=== PATIENT | male | born 1955 | race Caucasian/White ===

== ENCOUNTER 2017-07-10 06:03 | Day surgery (SDC) | payer OTHER ==
[2017-07-10] VITALS (9 sets, daily range): BP systolic 111–162; BP diastolic 66–91; PULSE 60–80; RESP 16–20; TEMP 97.7–98.8; O2SAT 95–99
[~2017-07-10] VITALS: Ht 172.7 cm; Wt 91.0 kg
[~2017-07-10 06:03] MED LIST: LEVA500T PO
[2017-07-10] MEDS ORDERED: CHLORHEXIDINE GLUCONATE 2 % 1 PACK (2 CLOTHS) TOPICAL PRN (06:45)
[2017-07-10] MEDS ORDERED: MUPIROCIN 2% OINT 1 APPLIC/GM SYR NASAL SCH (06:45)
[2017-07-10] MEDS ORDERED: LORazepam 1 MG TAB SL SCH (06:45)
[2017-07-10] MEDS ORDERED: POVIDONE IODINE 5% (ANTISEPSIS KIT) 4 APPLICATIONS EACH NARE PRN (06:45)
[2017-07-10] MEDS ORDERED: METOPROLOL TARTRATE 25 MG TAB PO PRN (06:45)
[2017-07-10] MEDS ORDERED: POVIDONE IODINE 5% (ANTISEPSIS KIT) 4 APPLICATIONS EACH NARE SCH (06:45)
[2017-07-10] MEDS ORDERED: NS 1000 ML IV SCH (06:45)
[2017-07-10] MEDS ORDERED: VANCOMYCIN 1000 MG/NS 250 ML IV SCH ×2 (06:45)
[2017-07-10] MEDS ORDERED: CHLORHEXIDINE GLUCONATE 2 % 1 PACK (2 CLOTHS) TOPICAL SCH (06:45)
[2017-07-10] MEDS ORDERED: LACTATED RINGER'S 1000 ML IV PRN (06:45)
[2017-07-10] MEDS ORDERED: ceFAZolin 2 GM PREMIX 50 ML IV SCH (06:45)
[2017-07-10] MEDS ORDERED: SODIUM CHLORID 0.9% 500 ML IV PRN (06:45)
[2017-07-10 07:04] LABS: AUTOMATED NEUTROPHIL # 4.8 TH/MM3 (1.8-7.7); BASOPHIL % 0.6 % (0.0-2.0); EOSINOPHIL # 0.3 TH/MM3 (0-0.4); EOSINOPHIL % 3.6 % (0.0-4.0); HEMATOCRIT 44.6 % (39.0-51.0); HEMO FLAGS DIFF FINAL; LYMPH % 33.1 % (9.0-44.0); MEAN CELL VOLUME 95.3 FL (80.0-100.0); MEAN CORPUSCULAR HGB CONC 34.6 % (32.0-36.0); MONO % 9.5 % (0.0-8.0); NEUT % 53.2 % (16.0-70.0); PLATELET COUNT 199 TH/MM3 (150-450); RED BLOOD COUNT 4.68 MIL/MM3 (4.50-5.90); RED CELL DISTRIBUTION WIDTH 12.8 % (11.6-17.2)
[2017-07-10 07:12] LABS: APTT (PATIENT) 27.8 SEC (24.3-30.1); INTERNATIONAL NORMALIZED RATIO 1.1 RATIO; PROTHROMBIN TIME - PATIENT 11.3 SEC (9.8-11.6)
[2017-07-10 07:19] LABS: BICARBONATE 28.1 MEQ/L (21.0-32.0); POTASSIUM 3.9 MEQ/L (3.5-5.1)
[2017-07-10] MEDS ORDERED: FURO40TA PO (07:43)
[2017-07-10] MEDS ORDERED: APIX5TAB PO (07:43)
[2017-07-10] MEDS ORDERED: LISI10TA3 PO (07:43)
[2017-07-10] MEDS ORDERED: AMIO200T PO (07:43)
[2017-07-10] MEDS ORDERED: CARV6.252 PO (07:43)
[2017-07-10] MEDS ORDERED: MIDAZOLAM HCL 2 MG/2 ML VIAL ONE (15:22)
[2017-07-10] MEDS ORDERED: PROPOFOL 200 MG/20 ML AMP ONE (15:22)
[2017-07-10] MEDS ORDERED: LIDOCAINE HCL 2% 50 ML VIAL ONE (15:25)
[2017-07-10] MEDS ORDERED: VANCOMYCIN 500 MG VIAL ONE (15:26)
--- NOTE | 2017-07-10 16:24 | CATHPROC ---
Oneto[employer] HIS Report Study Information Study Number Admission Scheduled Start Study Start [id number] Jul 10 2017 6:03AM 07/10/2017 Jul 10 2017 3:27PM [facility] Service Cardiac Pacer/ICD Admit Source Facility Department Other [facility] Physician and Clinical Staff Initial Josh Sotelo Balance Truer Tamika Ha,UNEMPLOYMENT INSURANCE DIRECTOR TECH2 Other Anesthesia, DYNAMIC ETCHING PROCESSOR Recorder Kierra Caballero,RN Scrub Gracie Sarmiento,RT(R) TECH2 Procedures Performed Procedure Lead Insertion Equipment Time Raschel Knitting Machine Operator Description Size Mfg Part Number Used/Scraped DEFIBRILLATOR, INTICA 7 VR-T 16:05 BIOTRONIK VVE-VDDR [id number] Used DX 16:03 BIOTRONIK LEAD, PLEXA PRO-MRI DF 65/15 [id number] Used DERMABOND, ADHESIVE SKIN [id number] 15:30 CORDIS/PACER * Used GLUE MINI *[id number] TP-1103 15:30 MEDLINE IND[employer]ES SUTURE, STRIP PLUS 1/2" * Used *[id number] 15:30 MEDLINE PACER SELBY, LIMB * 2530 *[id number] Used [id number] 15:30 Drinks4-you PACER PACK, PACER CUSTOM * Used *[id number] 15:59 Franchisee Gladiator PACER SAFE SHEATH, FR8, 13CM FR 8 CLS-1008 Used 15:57 Needle Sponge Count 2 22 Used 15:56 Needle Sponge Count 2 2 Used 15:57 Needle Sponge Count 20 200 Used SUTURE, 0 ETHIBOND [CT1] (CX21D), 8pk SUTURE, 2-0 VICRYL [CT1] ([id number]) SUTURE, 2-0 VICRYL [CT1] (ZFZ398H) [id number] 15:30 [place] [facility],WARM AIR CCL * Used *[id number] [facility] PAD, ELECTROSURGICAL 15:30 * [id number] *[id number] Used SURGICAL GROUNDING ORANGE [id number] 15:30 [employer]. / * Used *61823 Equipment Model, Serial, Lot Number and Expiration Data Description Model Number Serial Number Lot Number Expiration Date DEFIBRILLATOR, INTICA 7 VR-T DX [id number] 08-26-2018 LEAD, PLEXA PRO-MRI DF 65/15 [id number] 04-25-2019 History: Risk Factors Hypertension Dyslipidemia Previous [place] Previous Heart Failure Yes No No No Prior Valve Prior PCI Prior CABG Surgery No No No Cerebrovascular Peripheral Artery Chronic Lung On Dialysis Diabetes Disease Disease Disease No No No No No Labs Hgb (g/dl) Hct (%) RBC (MIL/MM3) WBC (l/cumm) Platelets (thousands) 11.60-17.00 35.00-51.00 4.00-5.90 4.00-11.00 150.00-450.00 15.4 44.6 4.6 9 199 Glucose (mg/dl) BUN (mg/dl) Creatinine (mg/dl) BUN:Creatinine (1:x) 74.00-106.00 7.00-18.00 0.50-1.30 10.00-20.00 114 24 1.6 15 Na (meq/l) K (meq/l) Cl (meq/l) CO2 (mmol/L) Ca (mg/dl) 136.00-145.00 3.50-5.10 98.00-107.00 21.00-32.00 8.50-10.10 141 3.9 107 28.1 9.1 PT (sec) PTT (sec) INR (PTT:PT) 9.80-11.60 24.30-30.10 0.90-1.10 11.3 27.8 1.1 CPK-MB (ng/ML) 0.50-3.60 Not Drawn Medication Medication Total Dose (Bolus/Oral) Medication Total Dosage/Unit 2% XYLOCAINE 20 mL Medications (Bolus/Oral) Medication Time Given Dosage/Unit Administered By Reason 2% XYLOCAINE 07/10/2017 3:55:03 PM 20 mL Josh Montoya 20 mL 2% XYLOCAINE given in lab by Josh Montoya via Subcutaneous. Ordered by Josh Montoya. left upp er chest Medication (Drip) Medication Time Given Dosage/Unit Concentration/Unit Diluent (ml) Solution ANCEF 07/10/2017 3:22:00 PM 2 g 2 g ANCEF given in lab by Anesthesia, DYNAMIC ETCHING PROCESSOR in Left Forearm via Peripheral IV. Ordered by Damaris Montoya. VANCOMYCIN DRIP 07/10/2017 3:23:00 PM 1 g 1 g VANCOMYCIN DRIP given in lab by Anesthesia, DYNAMIC ETCHING PROCESSOR in Right Antecubital via Peripheral IV. Ordered by Josh Montoya. Initial Case Assessment Cardiovascular HR Rhythm NIBP Chest Pain 71 Regular 105/57 0 Edema Present Skin color Skin None Normal Warm Dry Circulatory - Lower Extremities Color Lower Right Color Lower Left Normal Normal Neurological State Oriented to time-place- Alert Moves all extremities person Respiration - General Respiration Rate SpO2 (%) (B/min) 12 96 Final Case Assessment Cardiovascular HR Rhythm Chest Pain 76 Regular 0 Edema Present Skin color Skin None Normal Warm Dry Circulatory - Lower Extremities Color Lower Right Color Lower Left Normal Normal Neurological State Oriented to time-place- Alert Moves all extremities person Respiration - General Respiration Rate SpO2 (%) O2 (lpm) (B/min) 18 97 2 Chronological Log Time Study Chronological Log 15:16:00 Patient arrived via Bed. 15:16:01 Patient Name, D.O.B, / Armband Verified By R.N. 15:16:02 Consent signed by the physician and the patient and verified by the [facility] staff. 15:16:04 Pre-op and post- op instructions given; patient acknowledges understanding of instructions. 15:18:00 Verbal Stimulation=2 Physical Stimulation=2 Airway=2 Respiration=2 TOTAL=8. (0=absent, 1=li mited, 2=present) Anesthesia at bedside. Assumes care of patient. CLEMENCIA Vo. See anesthesia sheet for all vitals and medications given 15:18:08 during procedure 15:18:15 2% CHLORHEXIDINE GLUCONATE WASH AND NASAL SWIPE DONE PRIOR TO PROCEDURE. 15:19:00 Patient has been NPO for More than 6Hrs. 15:19:10 Skin Breakdown-none per pt 15:20:00 Patient Warmer Placed on the Table. 15:20:04 Disposable Defibrillator Pads Placed On Patient. 15:20:06 Demetra Prominences Protected 15:21:00 A # 20 IV was noted in the Forearm (left). Grade = 0 0.9NS infusing at KVO 15:21:30 A # 20 IV was noted in the Antecubital (right). Grade = 0 0.9NS infusing at KVO 15:22:00 2 g ANCEF given in lab by Anesthesia, DYNAMIC ETCHING PROCESSOR in Left Forearm via Peripheral IV. Ordered by Josh Escalante. 1 g VANCOMYCIN DRIP given in lab by Anesthesia, DYNAMIC ETCHING PROCESSOR in Right Antecubital via Peripheral IV. Or dered by Jan 15:23:00 Josh. 15:23:30 History and physical on the chart or being dictated. Assessment: Initial Case, HR=71 BPM, Rhythm=Regular, HKWO=918/57 mmhg, Chest Pain=0, Edema=None , Color=Normal, Skin = Warm, Dry Lower Right Extremities: Color=Normal 15:25:00 Lower Left Extremities: Color=Normal Neurological: State=Alert, Ox3, BLAKE Respiration: Resp=12 B/min, SpO2=96 % 15:27:00 Bovie ground pad applied to: Right hip 15:30:00 Table restraints applied according to hospital policy 15::33 Reference ECG taken 15:33:00 MD paged First Sponge And Instrument Count Done by Gracie Sarmiento, RT(R) TECH2. 15:35:00 Hypo's: 2, Sponges: 20, Bovie/scratch: 2 Sutures: 10, Blades: 1, Instruments: 26, Syveck Patches: 0 verified with Alis 15:38:00 Bilateral Upper Chest Prepped Times Two. 15:52:39 MD arrived. Time Out. Correct patient, procedure, procedure equipment, site and side verified with physicia n present. Time 15:54:57 concurred by MD, individual staff and DYNAMIC ETCHING PROCESSOR. Time Out #2 - Consents verified, patient in correct position, all results are labled and displa yed, safety precautions 15:54:59 taken, antibiotics administered. Time out concurred by MD, individual staff and DYNAMIC ETCHING PROCESSOR in procedu re 15:55:01 Case Start 15:55:03 20 mL 2% XYLOCAINE given in lab by Josh Montoya via Subcutaneous. Ordered by Josh Montoya . left upper chest 15:56:41 Vascular access was obtained in the Subclav. Vein (Lft. 15:57:40 Surgical Incision Made. 15:58:05 A pocket was created at the L Upper Chest. 15:58:14 A SAFE SHEATH, FR8, 13CM FR 8 was advanced into the Subclav. Vein (Lft using the Percutaneo us technique. 16:00:40 A LEAD, PLEXA PRO-MRI DF 65/15 was inserted and positioned in the RV. 16:00:47 Lead placement verified under fluoroscopy 16:00:53 The RV lead impedance and threshold being tested. 16:00:55 The RV lead was sutured to the fascia. 16:03:59 Pocket flushed with antibiotic solution 16:04:39 A DEFIBRILLATOR, INTICA 7 VR-T DX VVE-VDDR was connected and placed in the pocket. Second Sponge And Instrument Count Done by Gracie Sarmiento, RT(R) TECH2. 16:06:39 Hypo's: 2, Sponges: 20, Bovie/scratch: 2 Sutures: 10, Blades: 1, Instruments: ~INSTRU~, Syveck Patches: 0 verified with Alis 16:07:42 The pocket was closed. 16:07:44 Implant Procedure was performed. 16:07:55 A ICD Implant . (Single) 16:09:56 Case End 16:12:06 Steri-strips and a sterile dressing applied to site. Final Sponge And Instrument Count Done by Gracie Sarmiento RT(R) TECH2. 16:12:30 Hypo's: 2, Sponges: 20, Bovie/scratch: 2 Sutures: 10, Blades: 1, Instruments: 26, Syveck Patches: 0 verified with Alis 16:13:21 CIC called. Spoke to Ariadne 16:14:48 Bedside Report will be given. 16:14:56 A sling was placed on the left arm. 16:16:46 No case complications noted. 16:17:02 Cine recording checked. 16:17:06 Implantable Device card placed in patient's chart. Assessment: Final Case, HR=76 BPM, Rhythm=Regular, Chest Pain=0, Edema=None, Color=Normal, Ski n = Warm, Dry Lower Right Extremities: Color=Normal 16:17:11 Lower Left Extremities: Color=Normal Neurological: State=Alert, Ox3, BLAKE Respiration: Resp=18 B/min, SpO2=97 %, O2=2 lpm 16:18:17 Defibrillator and ground pads removed. Skin intact. 16:18:22 Verbal Stimulation=2 Physical Stimulation=2 Airway=2 Respiration=2 TOTAL=8. (0=absent, 1=l imited, 2=present) 16:23:18 [facility] to [facility] End Study - Contrast Media Used In Study Contrast Total Opened (mL) Total Used (mL) Total Wasted (mL) Unspecified 0 0 0 End Study - Maximum Contrast Load Max Contrast Load (mL) 293.5 End Study - Radiation Exposure Fluoro Time (minutes) 1.1 End Study - Patient Disposition Complications Transferred To Interventional Outcome No [facility] successful
--- NOTE | 2017-07-10 16:24 | PD.CARD ---
SINGLE CHAMBER DEFIB IMPLANT PROCEDURE DATE: Jul 10, 2017 NYHA Classification: Class II (Mild) Prevention: Primary Single Chamber Defib Implant PROCEDURE: Single chamber defibrillator implantation and device testing. INDICATIONS: Mr. Vann is a 62 -year-old malewith hx of atrial fibrillation, congestive heart failure, ejection fraction 30%, who undergo defibrillator implantation for sudden prevention. The risks, the nature and the benefit of the procedure are clearly stated to him . Risks include pneumothorax , cardiac perforation, stroke and even . He understood and agreed to proceed. PROCEDURE: After written, informed consent was obtained, the patient was brought to the EP Lab where he was prepped and draped in the sterile fashion. Conscious sedation was initiated and maintained throughout the procedure by anesthesiologist. Once sedation was verified, the left infraclavicular area was anesthetized with 2% Xylocaine. Using modified Seldinger technique, the left subclavian vein was cannulated on one occasion and one guide wire was advanced. Then, using #11 blade scalpel, a 3-cm incision was made two fingerbreadths below left clavicle. This incision was then taken down to the deep fascial layer using Bovie cautery and blunt dissection. Into the inferomedial direction, a device pocket was dissected, then the wire was dissected into the pocket. A 2-0 Vicryl suture was placed around the wires to prevent bleeding. At this point, over the wire, the 8- Vietnamese dilator and introducer was advanced. As dilator and wire were removed, an active fixation right ventricular pacing, sensing and defibrillatory lead was advanced. After adequate pacing and sensing thresholds were obtained, the lead was secured in the pocket with #2 Ethibond suture. At that point, the pocket was copiously irrigated with antibiotic solution. The leads were connected to the generator and placed into the pocket. I did proceed with wound closure. The deep fascial layer was approximated with 2-0 Vicryl suture in a continuous fashion. The subcutaneous layer was approximated with 2-0 Vicryl suture in a continuous fashion. The subcuticular layer was approximated with 2-0 Vicryl suture in a continuous fashion. Dermabond adhesive was applied to the wound, followed by a sterile pressure dressing. There was no complication. The patient tolerated procedure. Blood loss minimal. 1. Implanted Hardware: The implanted defibrillator generator is a CoScale, model number 282235, serial number [id number]. The right ventricular pacing, sensing and defibrillatory lead is a CoScale model number 238420, serial number [id number]. 2. Thresholds: The right ventricular pacing threshold in the bipolar mode was 0.8 volts at 0.4 milliseconds, lead impedance 925 ohms and R-wave at 15.2 mV. 3. Settings: The device set in VVI 40 defibrillatory portion for two zones, one zone for ventricular tachycardia between 180 and 250 beats per minute. Initial therapy consists of one burst of ATP, one ramp, 81%, 10 pulse, 10 millisecond decremental, followed by 20, then 30 and all subsequent shocks at 40 joules defibrillatory shock, the second zone for ventricular fibrillation above 250 beats per minute, first therapy at 30 and all subsequent shocks at 40 joules defibrillatory shock. CONCLUSIONS: Successful defibrillator implantation. COMMENT AND RECOMMENDATIONS: The patient will be transferred to the telemetry unit, will be observed and when stable can be discharged home. Josh Montoya MD Jul 10, 2017 16:24
[2017-07-10] MEDS ORDERED: HYDR-3366 PO ×2 (16:34→16:42)
[2017-07-10] MEDS ORDERED: CEPH-460 PO ×2 (16:34→16:42)
[2017-07-10] MEDS ORDERED: SODIUM CHLORIDE 0.9% FLUSH 10 ML FLUSH IV FLUSH PRN (17:00)
[2017-07-10] MEDS ORDERED: ACETAMINOPHEN/CODEINE 300 MG/30 MG TAB PO PRN (17:00)
[2017-07-10] MEDS ORDERED: ONDANSETRON HCL 4 MG/2 ML VIAL IV PUSH PRN (17:00)
--- NOTE | 2017-07-10 17:21 | RADRPT ---
EXAM DATE/TIME: 07/10/2017 16:46 [place] COMPARISON: No previous studies available for comparison. INDICATIONS : Post ICD placement. MEDICAL HISTORY : None. SURGICAL HISTORY : None. ENCOUNTER: Initial ACUITY: 1 day PAIN SCORE: 0/10 LOCATION: Bilateral chest FINDINGS: A single view of the chest demonstrates the lungs to be symmetrically aerated without evidence of mas s, infiltrate or effusion. The heart size is mildly enlarged. There is a pacemaker overlying the lef t chest. No evidence of pneumothorax.. Osseous structures are intact. CONCLUSION: No evidence of pneumothorax. Arnav Chu MD on July 10, 2017 at 17:18 Board Certified Radiologist. This report was verified electronically.
[2017-07-10] MEDS: FUROSEMIDE 20 MG TAB PO SCH (18:02)
[2017-07-10] MEDS: AMIODARONE 200 MG TAB PO SCH (18:02)
[2017-07-10] MEDS: ceFAZolin 2 GM PREMIX 50 ML IV SCH (18:03)
[2017-07-10] MEDS: SODIUM CHLORIDE 0.9% FLUSH 10 ML FLUSH IV FLUSH SCH (21:00)
[2017-07-10] MEDS ORDERED: TEMAZEPAM 15 MG CAP PO PRN (21:00)
[2017-07-10] MEDS: CARVEDILOL 6.25 MG TAB PO SCH (21:02)
[2017-07-10] MEDS: APIXABAN 5 MG TABLET PO SCH (21:03)
[2017-07-10] MEDS: ACETAMINOPHEN/CODEINE 300 MG/30 MG TAB PO PRN (21:03)
[2017-07-11] VITALS (11 sets, daily range): BP systolic 115–143; BP diastolic 65–77; PULSE 52–62; RESP 16; TEMP 98.2; O2SAT 97–98
[2017-07-11] MEDS: ceFAZolin 2 GM PREMIX 50 ML IV SCH ×2 (01:59→08:38)
[2017-07-11] MEDS: ACETAMINOPHEN/CODEINE 300 MG/30 MG TAB PO PRN ×2 (05:22→10:34)
[2017-07-11] MEDS: CARVEDILOL 6.25 MG TAB PO SCH (08:38)
[2017-07-11] MEDS: AMIODARONE 200 MG TAB PO SCH (08:38)
[2017-07-11] MEDS: SODIUM CHLORIDE 0.9% FLUSH 10 ML FLUSH IV FLUSH SCH (08:38)
[2017-07-11] MEDS: APIXABAN 5 MG TABLET PO SCH (08:39)
[2017-07-11] MEDS: FUROSEMIDE 20 MG TAB PO SCH (08:41)
[2017-07-11] MEDS ORDERED: LISINOPRIL 10 MG TAB PO SCH (09:00)
--- NOTE | 2017-07-11 09:34 | EKG ---
Date Performed: 07/10/2017 Time Performed: 07:10:00 PTAGE: 62 years EKG: Sinus rhythm with 1st degree A-V block. Possible inferior infarct - age undetermined Low QRS voltages in limb isabella ds Abnormal ECG NO PREVIOUS TRACING DOCTOR: Josh Montoya Interpretating Date/Time 07/11/2017 09:32:52
--- NOTE | 2017-07-11 10:36 | EKG ---
Date Performed: 07/11/2017 Time Performed: 04:54:30 PTAGE: 62 years EKG: Sinus bradycardia with 1st degree A-V block Possible inferior infarct - age undetermined Lo w QRS voltages in limb leads Abnormal ECG PREVIOUS TRACING : 07/10/2017 07.10 No significant change from previous tracing noted. DOCTOR: Fahad Rain Interpretating Date/Time 07/11/2017 10:34:19
== END 2017-07-11 15:24 | disposition home or self-care (01) ==
LOC: HCAT 06:03 → HDIC 06:04 → HCIS 16:32 → HCAT 17:46 → HCIS 17:46 → HCPC 17:47 → UNDOADMOB 17:47 → HCAT 07-11 13:35 → HCPC 07-11 13:35 → UNDODISOB 07-11 15:24 → HCAT 07-11 15:24
PROVIDERS: ATTEND Internal Medicine Interventional Cardiology
DX: I50.9 Heart failure, unspecified (principal); I48.91 Unspecified atrial fibrillation
CPT/HCPCS: 00534; 33249; 71010; 80048; 85025; 85610; 85730; 86850; 86900; 86901; 93005; C1722; C1777; J0690; J2250; J3010; J3370